=== PATIENT | male | born 1995 | race Caucasian/White ===

== ENCOUNTER → 2021-10-07 12:16 | Outpatient (CLI) | payer BC, SELFPAY ==
[2021-10-07 12:40] LABS: COVID19 -Nasal RAPID Negative (Negative)
== END ==
PROVIDERS: Visit Provider Physician Assistant
DX: Z20.822 Contact with and (suspected) exposure to COVID-19 (principal)
CPT/HCPCS: 87635

== ENCOUNTER → 2021-10-07 12:47 | Outpatient (CLI) | payer BC, SELFPAY ==
[2021-10-07 13:11] LABS: Monotest Negative (Negative)
[2021-10-07 16:05] LABS: HIV 1 & 2 Ab/Ag 4th Gen Combo NEGATIVE (NEGATIVE)
== END ==
PROVIDERS: Referring Provider Physician Assistant; Visit Provider Physician Assistant
DX: R59.0 Localized enlarged lymph nodes (principal); Z20.822 Contact with and (suspected) exposure to COVID-19
CPT/HCPCS: 36415; 86318; 87389; 87635

== ENCOUNTER → 2021-10-21 12:20 | Outpatient (CLI) | payer BC, SELFPAY | PROVIDERS: Referring Provider Nurse Practitioner Critical Care Medicine; Visit Provider Nurse Practitioner Critical Care Medicine | DX: J02.9 Acute pharyngitis, unspecified (principal) | CPT/HCPCS: 87070 ==